=== PATIENT | female | born 1965 | race Caucasian/White ===

== ENCOUNTER → 2020-03-31 13:06 | Outpatient (CLI) | payer OTHER, SELFPAY ==
--- NOTE | 2020-03-31 | DI.MG.S_ITS ---
BILATERAL DIGITAL DIAGNOSTIC MAMMOGRAM 3D/2D: 03/31/2020 CLINICAL: Right axillary lump. Comparison is made to exams dated: 02/02/2009 mammogram and 06/28/2008 mammogram - [facility]. There are scattered fibroglandular elements in both breasts. There is a new oval asymmetry with grouped fine calcifications in the right breast at 12 o'clock middle depth. There also are new grouped fine punctate calcifications in the right breast at 9 o'clock anterior depth. No other significant masses, calcifications, or other findings are seen in either breast. Specifically, no finding to correspond to the patient's axillary palpable abnormality. Normal sized nodes are present. IMPRESSION: INCOMPLETE: NEEDS ADDITIONAL IMAGING EVALUATION The new oval asymmetry in the right breast at 12 o'clock middle depth is indeterminate. An ultrasound is recommended. The new grouped fine punctate calcifications in the right breast at 9 o'clock anterior depth are suspicious of malignancy. A stereotactic biopsy is recommended. Ultrasound was perfomed following this study to complete the evaluation of the axilla and 12:00 finding. This exam was interpreted at Station ID: [id number]. NOTE: For mammograms, a report in lay terms will be sent to the patient. Approximately 15% of breast malignancies will not be visualized mammographically. In the management of a palpable breast mass, a negative mammogram must not discourage biopsy of a clinically suspicious lesion. Electronically Signed By: Aracelis gallardo/:03/31/2020 14:47:02 ACR BI-RADS Category 0: Incomplete [id number]
--- NOTE | 2020-03-31 | DI.US.S_ITS ---
LIMITED ULTRASOUND OF RIGHT BREAST AND AXILLA: 03/31/2020 CLINICAL: Patient returns today to evaluate focal asymmetries in the right breast and palpable right axillary lump. Comparison is made to exams dated: 03/31/2020 mammogram - [facility], 02/02/2009 mammogram, 02/02/2009 ultrasound, and 06/28/2008 ultrasound - [facility]. Color flow and real-time ultrasound of the right breast 9 o'clock, 12 o'clock, and axilla regions were performed. Hoover scale images of the real-time examination were reviewed. There is a 0.5 cm x 0.5 cm x 0.2 cm oval mass in the right breast at 12 o'clock middle depth 7 cm from the nipple. This oval mass is heterogeneously echogenic, potentially due to intrinsic microcalcifications. This likely correlates with mammography findings. Color flow imaging demonstrates that there is no vascularity present. There also is an incidental 0.5 cm x 0.5 cm x 0.2 cm oval cyst with a septated internal wall in the right breast at 9 o'clock anterior depth 1 cm from the nipple. This oval cyst is anechoic. Color flow imaging demonstrates that there is no vascularity present. No sonographic correlate found for the grouped microcalcifications seen at 9:00 on the mammogram. No significant abnormalities were seen sonographically in the right axilla to correspond to palpable abnormaltiy. IMPRESSION: SUSPICIOUS OF MALIGNANCY The 0.5 cm x 0.5 cm x 0.2 cm oval mass in the right breast at 12 o'clock middle depth is suspicious of malignancy. An ultrasound guided biopsy is recommended. The 0.5 cm x 0.5 cm x 0.2 cm oval cyst in the right breast at 9 o'clock anterior depth is consistent with a complicated cyst and is probably benign. There is no abnormality seen in the right breast to correspond with the mammography finding at 9 o'clock, however, a stereotactic biopsy is recommended. Findings and recommendations were reviewed with the patient by Dr. Ivan Santos immediately following the exams. This exam was interpreted at Station ID: [id number]. Electronically Signed By: Aracelis gallardo/:03/31/2020 15:11:17 letter sent: Biopsy Required Ultrasound BI-RADS: 4 Suspicious for malignancy
== END ==
PROVIDERS: PCP Family Medicine; Referring Provider Physician Assistant; Visit Provider Physician Assistant
DX: N63.12 Unspecified lump in the right breast, upper inner quadrant (principal); N63.15 Unspecified lump in the right breast, overlapping quadrants; N63.31 Unspecified lump in axillary tail of the right breast
CPT/HCPCS: 76642; 77066; G0279

== ENCOUNTER → 2021-08-08 12:22 | Outpatient (CLI) | payer OTHER, MEDICAID, SELFPAY | PROVIDERS: PCP Physician Assistant Medical; Visit Provider Physician Assistant | DX: H66.90 Otitis media, unspecified, unspecified ear (principal); J02.9 Acute pharyngitis, unspecified | CPT/HCPCS: 87252; 87880 ==